=== PATIENT | male | born 1995 | race Asian ===

== ENCOUNTER 2018-08-13 01:04 | Emergency (ER) | payer OTHER ==
[2018-08-13 01:20] VITALS: BP 131/74; PULSE 111; RESP 14; TEMP 98.7; O2SAT 96
== END 2018-08-13 01:30 | disposition home or self-care (01) | DRG 316 ==
LOC: ED 01:04
DX: R09.89 Other specified symptoms and signs involving the circulatory and respiratory systems (principal)
CPT/HCPCS: 99282